=== PATIENT | female | born 1985 ===

== ENCOUNTER 2018-06-26 22:54 | Emergency (ER) | payer OTHER ==
[2018-06-27 00:45] LABS: BASO % 0.5 % (0.0-2.0); EOS # 0.1 K/uL (0.0-0.7); EOS % 1.1 % (0.0-4.0); LYMPH # 2.2 K/uL (1.0-4.3); LYMPH % 27.9 % (20.0-40.0); MEAN CELL VOLUME 90.3 fl (81.0-99.0); MEAN CORPUSCULAR HEMOGLOBIN 30.5 pg (27.0-31.0); MEAN CORPUSCULAR HGB CONC 33.7 g/dL (33.0-37.0); MEAN PLATELET VOLUME 7.8 fl (7.2-11.7); MONO # 0.8 K/uL (0.0-0.8); MONO % 9.5 % (0.0-10.0); NEUT # 4.8 K/uL (1.8-7.0); RBC 3.94 Mil/uL (3.80-5.20); WHITE BLOOD COUNT 7.9 K/uL (4.8-10.8)
[2018-06-27 01:00] LABS: ALB/GLOB RATIO 1.4 (1.0-2.1); ALT/SGPT 25 U/L (9-52); AST/SGOT 25 U/L (14-36); BLOOD UREA NITROGEN 14 mg/dl (7-17); CALCIUM 8.7 mg/dL (8.4-10.2); GFR AFRICAN-AMERICAN > 60; GFR NON-AFRICAN AMERICAN > 60; LIPASE 83 U/L (23-300)
[2018-06-27 02:21] LABS: SQUAMOUS EPITHIAL 1 /hpf (0-5); URINE BILIRUBIN NEGATIVE (NEGATIVE); URINE BLOOD NEGATIVE (NEGATIVE); URINE CLARITY SLIGHTY-CLOUDY (Clear); URINE COLOR YELLOW (YELLOW); URINE GLUCOSE (UA) NEG (Normal); URINE LEUKOCYTE ESTERASE NEG Leu/uL (Negative); URINE PROTEIN 30 mg/dL (NEGATIVE); URINE UROBILINOGEN 0.2-1.0 mg/dL (0.2-1.0)
--- NOTE | 2018-06-27 02:51 | ED PDOC ---
HPI: Abdomen Time Seen by Provider: 06/27/18 00:00 Chief Complaint (Nursing): Back Pain Chief Complaint (Provider): Abdominal pain/Back Pain History Per: Patient History/Exam Limitations: no limitations Onset/Duration Of Symptoms: Hrs Current Symptoms Are (Timing): Still Present Location Of Pain/Discomfort: Epigastric Associated Symptoms: Back Pain. denies: Fever, Nausea, Vomiting, Diarrhea Additional Complaint(s): Perla Lake is a 33 year old female with a past medical history of asthma who is presenting to the ED for evaluation of upper abdominal pain radiating to the back onset last night. Patient states that the pain is worsened with movement and denies any fevers, nausea, vomiting, or diarrhea. She offers no other medical complaints at this time. PMD: Danita Rodriguez Past Medical History Reviewed: Historical Data, Nursing Documentation, Vital Signs Vital Signs: Last Vital Signs Temp 98.5 F 06/27/18 06:46 Pulse 72 06/27/18 06:46 Resp 16 06/27/18 06:46 BP 106/70 06/27/18 06:46 Pulse Ox 99 06/27/18 09:32 - Medical History PMH: Asthma - Surgical History Surgical History: No Surg Hx - Family History Family History: States: Unknown Family Hx - Social History Current smoker - smoking cessation education provided: No Alcohol: Social Drugs: Denies - Home Medications Home Medications: Ambulatory Orders Medication Instructions Recorded Famotidine [Pepcid] 20 mg PO DAILY PRN #6 tab 06/27/18 Ibuprofen [Motrin] 600 mg PO TID 7 Days tab 06/27/18 - Allergies Allergies/Adverse Reactions: Allergies Allergy/AdvReac Type Severity Reaction Status Date / Time No Known Allergies Allergy Verified 06/26/18 23:19 Review of Systems ROS Statement: Except As Marked, All Systems Reviewed And Found Negative Constitutional: Negative for: Fever Gastrointestinal: Positive for: Abdominal Pain. Negative for: Nausea, Vomiting , Diarrhea Musculoskeletal: Positive for: Back Pain Physical Exam - Reviewed Nursing Documentation Reviewed: Yes Vital Signs Reviewed: Yes - Physical Exam Appears: Positive for: Non-toxic, No Acute Distress Head Exam: Positive for: ATRAUMATIC, NORMAL INSPECTION, NORMOCEPHALIC Skin: Positive for: Normal Color, Warm, DRY Eye Exam: Positive for: EOMI, Normal appearance, PERRL ENT: Positive for: Normal ENT Inspection Neck: Positive for: Normal Cardiovascular/Chest: Positive for: Regular Rate, Rhythm. Negative for: Murmur Respiratory: Positive for: Normal Breath Sounds. Negative for: Respiratory Distress Gastrointestinal/Abdominal: Positive for: Soft, Tenderness (mild epigastric tenderness) Back: Positive for: Normal Inspection. Negative for: L CVA Tenderness, R CVA Tenderness, Vertebral Tenderness Extremity: Positive for: Normal ROM. Negative for: Deformity, Swelling Neurologic/Psych: Positive for: Alert, Oriented. Negative for: Motor/Sensory Deficits - Laboratory Results Result Diagrams: 06/27/18 00:35 06/27/18 00:35 - ECG O2 Sat by Pulse Oximetry: 99 (RA) Pulse Ox Interpretation: Normal Medical Decision Making Medical Decision Making: Time: 00:35 Impression/Differentials: abdominal pain rule out gastritis vs. pancreatitis Plan: --CMP --Lipase --Pepcid 20 mg IVP --Urine Culture --Urinalysis Labs reviewed with no clinically significant abnormalities. Lipase was negative. around 530-6 am. Reports that she is still experiencing pain though she was sleeping comfortably. States her pain came back now, will order CT ap. 7:00 Patient will be signed out to Dr. Jose pending CT scan. Scribe Attestation: Documented by Gladis Denis, acting as a scribe for Chelsea Aceves MD. Provider Scribe Attestation: All medical record entries made by the Scribe were at my direction and personally dictated by me. I have reviewed the chart and agree that the record accurately reflects my personal performance of the history, physical exam, medical decision making, and the department course for this patient. I have also personally directed, reviewed, and agree with the discharge instructions and disposition. Disposition - Clinical Impression Clinical Impression: Abdominal pain - Patient ED Disposition Is Patient to be Admitted: Transfer of Care - Disposition Referrals: [facility] [Outside] - 06/28/18 Disposition: Transfer of Care Disposition Time: 07:00 Condition: STABLE Additional Instructions: Return if not better in 3 days. Prescriptions: Famotidine [Pepcid] 20 mg PO DAILY PRN #6 tab PRN Reason: Pain Ibuprofen [Motrin] 600 mg PO TID 7 Days tab Instructions: Stomach Ache and Stomach Upset Print Language: UKRAINIAN Patient Signed Over To: Maverick Jose (pending CT scan)
[2018-06-27 06:47] VITALS: BP 106/70; PULSE 72; RESP 16; TEMP 98.5
[2018-06-27 06:55] VITALS: O2SAT 99
--- NOTE | 2018-06-27 07:37 | ED PDOC ---
- Laboratory Results Result Diagrams: 06/27/18 00:35 06/27/18 00:35 Interpretation Of Abn Labs: no acute - ECG O2 Sat by Pulse Oximetry: 99 (RA) Pulse Ox Interpretation: Normal - CT Scan/US ct Other Rad Studies (CT/US): Read By Radiologist Other Rad Interpretation: no acute - Progress ED Course And Treament: 930: Stable. AAOx3. Pain free. Tolerated po. Fu with pcp. Medical Decision Making Medical Decision Making: Time: 07 Patient signed out to me by Dr. Aceves pending CT scan for abdominal pain. Scribe Attestation: Documented by Alix Jara, acting as a scribe for Maverick Jose MD Provider Scribe Attestation: All medical record entries made by the Scribe were at my direction and personally dictated by me. I have reviewed the chart and agree that the record accurately reflects my personal performance of the history, physical exam, medical decision making, and the department course for this patient. I have also personally directed, reviewed, and agree with the discharge instructions and disposition. Disposition Counseled Patient/Family Regarding: Studies Performed, Diagnosis, Need For Followup, Rx Given - Clinical Impression Clinical Impression: Abdominal pain - POA Present On Arrival: None - Disposition Referrals: [facility] [place] [Outside] - 06/28/18 Disposition: Routine/Home Disposition Time: 09:31 Condition: STABLE Additional Instructions: Return if not better in 3 days. Prescriptions: Famotidine [Pepcid] 20 mg PO DAILY PRN #6 tab PRN Reason: Pain Ibuprofen [Motrin] 600 mg PO TID 7 Days tab Instructions: Stomach Ache and Stomach Upset Print Language: AMHARIC
--- NOTE | 2018-06-27 13:35 | CT ---
Date of service: 06/27/2018 PROCEDURE: CT Abdomen and Pelvis without intravenous contrast HISTORY: Abdominal pain COMPARISON: None. TECHNIQUE: CT scan of the abdomen and pelvis was performed without administration of intravenous contrast. Oral contrast was not administered. Coronal and sagittal reformatted images were obtained. . Radiation dose: Total exam DLP = 316.55 mGy-cm. This CT exam was performed using one or more of the following dose reduction techniques: Automated exposure control, adjustment of the mA and/or kV according to patient size, and/or use of iterative reconstruction technique. FINDINGS: LOWER THORAX: The visualized lungs are clear. LIVER: Normal in size. No intrahepatic ductal dilatation. GALLBLADDER AND BILE DUCTS: No calcified gallstones. No biliary dilatation PANCREAS: Normal in size. No ductal dilatation. SPLEEN: Normal in size. ADRENALS: Normal in size. No discrete nodule. KIDNEYS AND URETERS: Normal in size without nephrolithiasis. No hydronephrosis. VASCULATURE: No aortic aneurysm. BOWEL: The small bowel loops are normal in caliber. The colon is normal in size. No bowel dilatation or wall thickening. No bowel obstruction. APPENDIX: Normal appendix. PERITONEUM: No free fluid. No free air. LYMPH NODES: No enlarged lymph nodes. BLADDER: Well distended and grossly normal in appearance. REPRODUCTIVE: The uterus is normal in size BONES: No acute fracture. Within normal limits for the patient's age. OTHER FINDINGS: There is a small fat containing umbilical. IMPRESSION: No acute abdominal or pelvic abnormality. A preliminary report was provided by [employer] services.
== END 2018-06-27 10:30 | disposition home or self-care (01) ==
LOC: H.ER 22:54
DX: R10.13 Epigastric pain (principal); M54.9 Dorsalgia, unspecified
CPT/HCPCS: 74176; 80053; 81003; 81025; 83690; 85025; 87086; 96374; 96375; 99283; J1885

== ENCOUNTER 2018-12-22 00:49 | Emergency (ER) | payer MEDICAID ==
[2018-12-22 01:04] VITALS: BMI 28.3
[2018-12-22 01:11] VITALS: BP 130/78; PULSE 71; RESP 18; TEMP 97.8; O2SAT 98
--- NOTE | 2018-12-22 01:19 | ED PDOC ---
HPI: Female Pain Time Seen by Provider: 12/22/18 01:00 Chief Complaint (Nursing): Female Genitourinary History Per: Patient Additional Complaint(s): Pt. states 1 hour [employer] she developed urinary urgency and hesitancy with suprapubic pain. Denies abdominal pain, fever, chills, vomiting, back pain, flank pain, hematuria, incontinence. Abnormal Vaginal Bleeding: No Last Menstral Period: 11/30/2018 Past Medical History Vital Signs: Last Vital Signs Temp 97.8 F 12/22/18 01:03 Pulse 71 12/22/18 01:03 Resp 18 12/22/18 01:03 BP 130/78 12/22/18 01:03 Pulse Ox 98 12/22/18 01:03 - Medical History PMH: Asthma - Surgical History Surgical History: No Surg Hx - Family History Family History: States: No Known Family Hx - Home Medications Home Medications: Ambulatory Orders Medication Instructions Recorded Famotidine [Pepcid] 20 mg PO DAILY PRN #6 tab 06/27/18 Ibuprofen [Motrin] 600 mg PO TID 7 Days tab 06/27/18 Nitrofurantoin Macrocrystals 100 mg PO BID #13 cap 12/22/18 [Macrobid] - Allergies Allergies/Adverse Reactions: Allergies Allergy/AdvReac Type Severity Reaction Status Date / Time No Known Allergies Allergy Verified 12/22/18 01:03 Review of Systems ROS Statement: Except As Marked, All Systems Reviewed And Found Negative Genitourinary Female: Positive for: Pelvic Pain Physical Exam - Physical Exam Appears: Positive for: Well, Non-toxic, No Acute Distress Skin: Positive for: Normal Color, Warm. Negative for: Rash Eye Exam: Positive for: Normal appearance Gastrointestinal/Abdominal: Positive for: Normal Exam, Soft. Negative for: Tenderness Back: Negative for: L CVA Tenderness, R CVA Tenderness Neurologic/Psych: Positive for: Alert, Oriented (x3) - Laboratory Results Urine POC: Negative Urine dip results: Positive for: Leukocyte Esterase (trace). Negative for: Blood, Nitrate, Ketones, Glucose, Bilirubin, Protein - ECG O2 Sat by Pulse Oximetry: 98 - Progress Re-evaluation Time: 02:28 (No CVA tenderness b/l. Abd/pelvis soft and non- tender. ) Condition: Re-examined, Improved Disposition - Clinical Impression Clinical Impression: Urinary tract infection - Patient ED Disposition Is Patient to be Admitted: No - Disposition Referrals: [facility] [Outside] Disposition: Routine/Home Disposition Time: 02:28 Condition: IMPROVED Additional Instructions: FOLLOW UP WITH YOUR DOCTOR FOR FURTHER EVALUATION RETURN TO ED IMMEDIATELY IF SYMPTOMS WORSEN EVIE Butts ALBIN GONZALEZ, thank you for letting us take care of you today. Your provider was Dago Barger MD and you were treated for ABD PAIN. The emergency medical care you received today was directed at your acute symptoms. If you were prescribed any medication, please fill it and take as directed. It may take several days for your symptoms to resolve. Return to the Emergency Department if your symptoms worsen, do not improve, or if you have any other problems. Please contact your doctor or call one of the physicians/clinics you have been referred to that are listed on the Patient Visit Information form that is included in your discharge packet. Bring any paperwork you were given at discharge with you along with any medications you are taking to your follow up visit. Our treatment cannot replace ongoing medical care by a primary care provider outside of the emergency department. Thank you for allowing the [facility] team to be part of your care today. If you had an X-Ray or CT scan: A Radiologist will review the ED reading if any change in treatment is needed we will contact you. If you had a blood, urine, or wound culture: It will take several days for the results, if any change in treatment is needed we will contact you. If you had an STI test: It will take 48 hours for the results. Please call after 1 week if you have not heard back. Prescriptions: Nitrofurantoin Macrocrystals [Macrobid] 100 mg PO BID #13 cap Instructions: Urinary Tract Infection, Adult (DC) Forms: [employer] (Indonesian) Print Language: SYRIAC
== END 2018-12-22 02:42 | disposition home or self-care (01) ==
LOC: H.ER 00:49
DX: N39.0 Urinary tract infection, site not specified (principal); J45.909 Unspecified asthma, uncomplicated